=== PATIENT | female | born 1940 | race Caucasian/White ===

== ENCOUNTER 2019-04-20 15:21 | Inpatient (IN) ==
[2019-04-20] MEDS ORDERED: DUONEB (A & A) INH ONE (16:18)
[2019-04-20] MEDS ORDERED: SOLU-MEDROL IV ONE (16:18)
[2019-04-20] MEDS ORDERED: PRIMAXIN 500 MG in NS 100 ML IV ONE (16:26)
--- NOTE | 2019-04-20 16:29 | PROVIDER DOCUMENTATION ---
This chart was entered by Theresa Antonio Scribe, acting as scribe for Valdemar Hirsch MD. HPI-General Adult - General Chief Complaint: Sinus Pain Stated Complaint: SINUS Time Seen by Provider: 04/20/19 15:54 Source: patient, other ([facility]) Allergies/Adverse Reactions: Patient Allergies Allergy/AdvReac Type Severity Reaction Status Date / Time No Known Allergies Allergy Verified 04/14/16 12:59 Home Medications: Home Medication List Medication Instructions Recorded Confirmed Last Taken Type Losartan Potassium 100 mg PO DAILY 01/17/15 07/10/17 07/09/17 21:00 History Amitriptyline [Elavil] 50 mg PO HS 04/16/16 07/10/17 07/09/17 21:00 History Duloxetine [Cymbalta] 30 mg PO DAILY 04/16/16 07/10/17 07/09/17 21:00 History Gabapentin [Neurontin] 300 mg PO TID 04/16/16 07/10/17 07/09/17 21:00 History Hydrochlorothiazide 12.5 mg PO DAILY 04/16/16 07/10/17 07/09/17 21:00 History Metoprolol Succinate 100 mg PO DAILY 07/03/17 07/10/17 07/09/17 21:00 History Multivit-Min/FA/Lycopen/Lutein 1 each PO DAILY 07/03/17 07/10/17 07/09/17 21:00 History [Centrum Silver Tablet] Oxycodone/APAP 5 mg/325 mg 1 each PO Q4H PRN PRN #40 tablet 07/12/17 Unknown Rx [Percocet-5] Rivaroxaban [Xarelto] 10 mg PO Q24H #10 tablet 07/12/17 Unknown Rx - History of Present Illness -Gen Adult Nature of Presenting Problems: 79yof presents to ED cc cough, sinus congestion, thick/clear sinus drainage for 3 weeks. Pt reports she saw her PCP/Dr. Mona Cerda on because she thought she had flu, had a nose swab and the culture came back today that showed pt has Acinetobacter Baumannii and pt needs IV ABT Carbapenem. Dr. Cerda called and spoke with Maribel/[facility] ANA[facility] for hospitalist and pt is to be admitted. Location of Pain/Injury: reports: face Quality of Pain: reports: pressure Severity: reports: moderate Onset/Duration: reports: other (3 weeks) Timing: reports: still present Context/Activities at Onset: reports: light activity Modifying Factors: improves with: nothing Associated Symptoms: reports: sinus congestion/drainage Similar Symptoms Previously?: Yes Recently seen or treated by another doctor?: Yes (saw PCP last ) Review of Systems - Adult - REVIEW OF SYSTEMS - ADULT Constitutional: reports: see HPI. denies: chills, fever, fatique Eyes: reports: no symptoms reported Ears, Nose, Mouth & Throat: reports: see HPI, sinus problem Cardiovascular: reports: no symptoms reported Respiratory: reports: see HPI, cough Gastrointestinal: reports: no symptoms reported Genitourinary: reports: no symptoms reported Musculoskeletal: reports: no symptoms reported Integumentary: reports: no symptoms reported Neurological: reports: no symptoms reported Psychiatric: reports: no symptoms reported Endocrine: reports: no symptoms reported Hematologic/Lymphatic: reports: no symptoms reported Allergic/Immunologic: reports: no symptoms reported All Other Systems: Reviewed and Negative Past History - Adult - PAST MEDICAL HISTORY-ADULT Review of Records: reports: Old Records Reviewed, Nursing Assessment Review, Medications Reviewed, Social history reviewed & non-contributory. Major Childhood Illnesses: reports: denies history Cardiovascular: reports: HTN, hyperlipidemia Respiratory: reports: denies history Gastrointestinal: reports: denies history Obstetrical/Gynecological: reports: denies history Genitourinary: reports: denies history Musculoskeletal: reports: denies history Neurological: reports: denies history Endocrine/Immune: reports: denies history Other Conditions: reports: other cancer (breast) - PRIOR SURGERIES/PROCEDURES Surgical/Procedure History: reports: indwelling device (chemo port), breast (right ) - IMMUNIZATION STATUS Childhood Immunizations: See Nurse Assessment Flu Vaccine: See Nurse Assessment - FAMILY HISTORY Family History: reviewed, not pertinent Physical Exam-General - PHYSICAL EXAM-ADULT Initial Vital Signs Reviewed: Yes - CONSTITUTIONAL General Appearance: appears well, alert, no apparent distress. negative: anxious, combative - EYES Eyes: PERRL/EOMI, pink conjunctivae. negative: photophobia - HEAD, EARS, NOSE, MOUTH & THROAT HENMT: normocephalic/atraumatic, moist mucous membranes, other (sinus congestion). negative: angioedema - NECK Neck: supple - RESPIRATORY Respiratory: chest non-tender, normal breath sounds, rhonchi (coarse, bilateral) . negative: crackles - CARDIOVASCULAR Cardiovascular: normal peripheral pulses, regular rate, rhythm. negative: bradycardia, tachycardia - GASTROINTESTINAL (ABDOMEN) Abdominal Exam: normal bowel sounds, non tender, soft. negative: rebound - LYMPHATIC Lymphatic: no adenopathy - MUSCULOSKELETAL Extremity: normal inspection. negative: deformity - SKIN Integumentary: normal color. negative: diaphoresis, jaundice - PSYCHIATRIC Psych/Mental Status: normal mood/affect, oriented x 3. negative: anxious, disheveled Progress - PLAN OF CARE/RESULTS Progress/Plan/Lab Results: Vital Signs - 8 hr 04/20/19 15:25 Temperature 97.8 F Pulse Rate 106 H Respiratory Rate 24 Blood Pressure 161/81 O2 Sat by Pulse Oximetry 94 L Orders Category Date Time Status NEWS Score 2-4:Order NEWS Lactate Series NOW Care 04/20/19 15:30 Active - CONSULTS/PCP/HOSPITALIST Notification #1 *Consult/PCP/Hospitalist*: [facility] Time Discussed: 16:00 Consult Disposition: Admit Departure - Departure Date of Disposition Decision: 04/20/19 Time of Disposition Decision: 16:25 DIAGNOSIS: Infection due to acinetobacter baumannii, Sinusitis, Asthma exacerbation Disposition: ADMITTED INPATIENT 09 Certified Medical Emergency: Emergent Condition: Fair Referrals and Follow-Ups: Asmita Thomas CRNP [Primary Care Provider] - - Critical Care Note This patient required my direct & personal management of CC.: No Attestation - Physician/ ARNAUD Attestation Patient care was provided by Advanced Practice Provider:: No The physician spent face to face time with patient:: Yes Advanced Practice Provider documentation review:: Supervising physician onsite and consulted in the evaluation and care of this patient. The physician did have a face to face encounter with the patient. This chart was documented by the indicated scribe, (Theresa Antonio Scribe) and accurately reflects the services I performed and decisions made by me, Valdemar Hirsch MD, as attested by the provider's signature.
--- NOTE | 2019-04-20 16:44 | Diag Imaging Result Doc PS360 ---
EXAM: CHEST-1 VIEW HISTORY: asthma, wheezing TECHNIQUE: Single view COMPARISON: 04/02/2019 FINDINGS: The lungs are hyperexpanded. The heart is not enlarged. The vessels are not distended. There are no infiltrates. No effusion identified. There has been a right-sided mastectomy. No lung nodules identified. Likely scarring in the left base. IMPRESSION: Stable chest. Electronically signed by Keon Sood 04/20/2019 4:42 PM
[2019-04-20 17:50] LABS: BASO# 0.02 X1000 (0.0-0.2); BASO% 0.1 % (0.0-0.8); HEMATOCRIT 39.1 % (37.0-47.0); HEMOGLOBIN 13.1 g/dL (12.0-16.0); IMM GRAN# 0.03 X1000 (0.0-0.04); IMM GRAN% 0.2 % (0.0-0.5); LYMPH# 1.47 X1000 (1.2-3.4); LYMPH% 9.1 % (20.5-51.1); MCH 30.6 PG (27-31); MCHC 33.5 g/dL (33-37); MCV 91.4 FL (81-99); MONO# 0.41 X1000 (0.11-0.59); MONO% 2.5 % (1.7-9.3); MPV 8.8 FL (7.4-10.4); NEUT# 14.26 X1000 (1.4-6.5); NEUT% 88.1 % (42.2-75.2); PLT 443 X1000 (130-400); RBC 4.28 XMIL (4.2-5.4); RDW 12.8 % (11.5-14.5); WBC 16.19 X1000 (4.8-10.8)
[2019-04-20 18:06] LABS: LYMPHS 10 % (21-51); SEGS 90 % (42-75)
[2019-04-20 18:12] LABS: AGAP 19; ALB/GLOB RATIO 1.4; ALBUMIN 4.5 g/dL (3.5-5.0); ALKALINE PHOSPHATASE 78 U/L (32-104); BUN 9 mg/dL (8-22); CALCIUM 9.7 mg/dL (8.8-10.2); CHLORIDE 90 mmol/L (98-107); COSMO 267; CREATININE 0.9 mg/dL (0.5-0.9); ESTIMATED GFR > 60; GLUCOSE 165 mg/dL (70-104); GOT 30 U/L (10-30); GPT 32 U/L (10-36); POTASSIUM 3.7 mmol/L (3.5-5.1); SODIUM 132 mmol/L (136-145); TCO2 23 mmol/L (25-35); TOTAL BILIRUBIN 0.27 mg/dL (0.20-1.00); TOTAL PROTEIN 7.7 g/dL (6.3-8.3)
[2019-04-20 20:04] LABS: INR 0.97
[2019-04-20 20:05] LABS: PTT 34.7 Seconds (22.3-41.8)
--- NOTE | 2019-04-20 21:34 | HISTORY AND PHYSICAL ---
CHIEF COMPLAINT: Cough and shortness of breath, she was not getting better. HISTORY OF PRESENT ILLNESS: She is a 79-year-old female, sounds like she has got asthma. She has been dealing with this issue for the last 3 weeks with cough and congestion. She has at least had 1 round of antibiotics, possibly 2 and a round of steroids but has not improved. She had I guess a genetic screen done on her nose, a naris swab, which grew out Acinetobacter baumannii at which point her PCP, who is CYNTHIA Perez with [facility], sent her for evaluation for admission feeling this was resistant. I do not have the culture information. It sounds like it was a genetic probe test like a PCR test, so I am not quite sure what the utility is in that I am not sure what the test can give us as far as specific information. In any case, patient was admitted for treatment. In the ER, she clearly has rhonchi, some degree of hypoxia. I do not know if we have gotten a chest x-ray on her yet. Presumably we have and I think she has got hyperextend lungs, but no clear infiltrate, but she sounds rhonchorous and wheezy consistent with an asthma exacerbation, and she will be admitted as such, possibly pneumonia or bronchitis with a positive Acinetobacter genetic probe test. PAST MEDICAL HISTORY: 1. Asthma. 2. Hypertension. PAST SURGICAL HISTORY: She has had a right breast mastectomy. She had a right total knee arthroplasty in 2018. FAMILY HISTORY: Reviewed and noncontributory. SOCIAL HISTORY: No tobacco. No ethanol. 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 ALLERGIES: No known drug allergies. MEDICATIONS: Her list is being compiled. She is on Cymbalta, Elavil, hydrochlorothiazide, losartan, metoprolol, and Xarelto, which I think was for a hip. REVIEW OF SYSTEMS: Otherwise negative x10 point review of systems. PHYSICAL EXAMINATION: VITAL SIGNS: Blood pressure is 161/81, heart rate of 106, respiratory rate of 24, temperature 97.8 degrees, 94% on room air. GENERAL: A well-developed female in no acute distress. HEAD EXAM: Normocephalic, atraumatic. EYE EXAM: Pupils equally round, reactive to light. Extraocular movements were intact. EAR, NOSE AND THROAT EXAM: He had moist mucous membranes. NECK: Supple. CARDIOVASCULAR EXAM: Regular rate and rhythm. No murmurs, gallops, or rubs. PULMONARY EXAM: She distinctly had rhonchi and wheezing throughout. GASTROINTESTINAL: Soft, nontender, nondistended. Bowel sounds are positive. NEUROLOGICAL EXAM: Was grossly normal, 2 through 12 were intact. MUSCULOSKELETAL EXAM: 4/5 in all four extremities. LABORATORY DATA: White count of 16, hemoglobin and hematocrit 13 and 39, platelets 443. Sodium 132. Rest of the labs were okay. Lactate was minimally elevated, but I do not think she was septic based on exam. She has no evidence of end-organ damage, but she does have bronchitis, possibly pneumonia, although her x-ray was read as completely clear with the Acinetobacter possible infection. PROBLEM LIST: 1. Asthma exacerbation. We will continue breathing treatments, steroids. If not improved, we may get a pulmonary consult. She has started seeing Dr. Cast and antibiotics. 2. Bronchitis with possible Acinetobacter exposure. This is typically fairly resistant. We will have to use possibly a carbapenem. ID is not available at this moment so we will empirically use different medication. 3. Hypertension. We will continue regular medications and follow. DISPOSITION: Pending clinical improvement. cc: MD Asmita Ellington CRNP
[2019-04-20] MEDS ORDERED: DUONEB (A & A) INH PRN (22:40)
[2019-04-20] MEDS: DUONEB (A & A) INH SCH ×2 (22:40→23:50)
[2019-04-21] MEDS: SOLU-MEDROL IV SCH ×3 (00:23→16:09)
[2019-04-21 03:46] LABS: URINE SOURCE CLEAN CATCH
[2019-04-21 03:50] LABS: BILIRUBIN URINE NEGATIVE (NEGATIVE); BLOOD URINE NEGATIVE (NEGATIVE); COLOR YELLOW; GLUCOSE URINE 1000 mg/dL (NEGATIVE); KETONE URINE 10 mg/dL (NEGATIVE); LEUKOCYTES URINE NEGATIVE (NEGATIVE); NITRITE URINE NEGATIVE (NEGATIVE); PH URINE 6.5; PROTEIN URINE TRACE mg/dL (NEGATIVE); SP GRAVITY URINE 1.017; TURBIDITY URINE CLEAR (CLEAR); UROBILINOGEN URINE NORMAL (NORMAL)
[2019-04-21 03:52] LABS: UR EPITHELIAL CELLS <10 /HPF (<10); URINE BACTERIA NEGATIVE /HPF; URINE RBC <10 /HPF (<10); URINE WBC <10 /HPF (<10)
[2019-04-21] MEDS: MERREM 1 GM in NS 50 ML IV SCH ×3 (04:18→20:43)
[2019-04-21 06:23] LABS: BASO# 0.01 X1000 (0.0-0.2); BASO% 0.1 % (0.0-0.8); HEMATOCRIT 37.4 % (37.0-47.0); HEMOGLOBIN 12.6 g/dL (12.0-16.0); IMM GRAN# 0.02 X1000 (0.0-0.04); IMM GRAN% 0.2 % (0.0-0.5); LYMPH# 0.56 X1000 (1.2-3.4); LYMPH% 5.6 % (20.5-51.1); MCH 30.6 PG (27-31); MCHC 33.7 g/dL (33-37); MCV 90.8 FL (81-99); MONO# 0.08 X1000 (0.11-0.59); MONO% 0.8 % (1.7-9.3); MPV 8.5 FL (7.4-10.4); NEUT# 9.42 X1000 (1.4-6.5); NEUT% 93.3 % (42.2-75.2); PLT 405 X1000 (130-400); RBC 4.12 XMIL (4.2-5.4); RDW 12.7 % (11.5-14.5); WBC 10.09 X1000 (4.8-10.8)
[2019-04-21 06:52] LABS: LYMPHS 10 % (21-51); SEGS 90 % (42-75)
[2019-04-21 06:56] LABS: AGAP 16; BUN 9 mg/dL (8-22); CALCIUM 9.6 mg/dL (8.8-10.2); CHLORIDE 91 mmol/L (98-107); COSMO 270; CREATININE 0.7 mg/dL (0.5-0.9); ESTIMATED GFR > 60; GLUCOSE 324 mg/dL (70-104); POTASSIUM 3.8 mmol/L (3.5-5.1); SODIUM 129 mmol/L (136-145); TCO2 22 mmol/L (25-35)
[2019-04-21] MEDS ORDERED: APRESOLINE IV PRN (07:59)
[2019-04-21] MEDS: DUONEB (A & A) INH SCH ×5 (08:49→23:03)
[2019-04-21] MEDS ORDERED: HYDROCHLOROTHIAZIDE PO SCH (09:00)
[2019-04-21] MEDS: SYMBICORT 160/4.5 MICROGM INHALER INH SCH ×2 (09:24→19:59)
[2019-04-21] MEDS: HYDROCHLOROTHIAZIDE PO SCH (10:39)
[2019-04-21] MEDS: NEURONTIN PO SCH ×3 (10:39→20:42)
[2019-04-21] MEDS: CYMBALTA PO SCH (10:40)
[2019-04-21] MEDS: SINGULAIR PO SCH (10:40)
[2019-04-21] MEDS: CENTRUM SILVER PO SCH (10:40)
[2019-04-21] MEDS ORDERED: NS 500 ML ONE (12:53)
[2019-04-21] MEDS: COZAAR PO SCH (17:43)
--- NOTE | 2019-04-21 17:51 | PROGRESS NOTE ---
DATE: 04/21/2019 SUBJECTIVE: The patient looks well. She is breathing a bit better. She says her cough has improved. OBJECTIVE: Blood pressure is 188/68, heart rate of 106, respiratory rate of 18, temperature 98.4 degrees, 96% on room air.Cardiovascular: Regular rate and rhythm. Pulmonary: Bilateral breath sounds, clear to auscultation. She had diffuse rhonchi and wheezing, but it was improved. GI: Soft, nontender, nondistended. Bowel sounds are positive. LABORATORY DATA: White count is 10, down from 16. Hemoglobin and hematocrit 12 and 37, platelets 405,000. Sodium 129, glucose 324. Plasma lactate, though, is up a bit. ASSESSMENT AND PLAN: 1. Acute asthma exacerbation. She seems like she is improving. I am going to back down a little bit on her steroids, and we will see how she does. Reportedly in clinic she was positive on a DNA respiratory panel probe for Acinetobacter. I do not have that report yet or at all. It was faxed to the emergency room, but I do not think anything ever transpired. In any case, she is being covered by meropenem. Waiting on sputum culture here. 2. Hypertension. We will continue her regular medication. She is still not controlled, but she is only on meropenem. We will probably go ahead and start her losartan back, and we may need to adjust further. 3. Disposition pending clinical status. I anticipate discharge in 1-2 days. cc: Angelo Garcia MD
[2019-04-21] MEDS: ELAVIL PO SCH (20:43)
[2019-04-22] MEDS: SOLU-MEDROL IV SCH ×4 (00:23→19:54)
[2019-04-22] MEDS: MERREM 1 GM in NS 50 ML IV SCH ×3 (04:30→19:54)
[2019-04-22 07:45] LABS: HEMATOCRIT 36.9 % (37.0-47.0); HEMOGLOBIN 12.1 g/dL (12.0-16.0); IMM GRAN# 0.06 X1000 (0.0-0.04); IMM GRAN% 0.4 % (0.0-0.5); LYMPH# 0.84 X1000 (1.2-3.4); MCH 30.2 PG (27-31); MCHC 32.8 g/dL (33-37); MONO# 0.44 X1000 (0.11-0.59); MONO% 3.2 % (1.7-9.3); MPV 8.4 FL (7.4-10.4); NEUT# 12.55 X1000 (1.4-6.5); NEUT% 90.4 % (42.2-75.2); PLT 421 X1000 (130-400); RBC 4.01 XMIL (4.2-5.4); RDW 12.7 % (11.5-14.5); WBC 13.89 X1000 (4.8-10.8)
[2019-04-22 08:14] LABS: AGAP 16; BUN 12 mg/dL (8-22); CALCIUM 9.3 mg/dL (8.8-10.2); CHLORIDE 92 mmol/L (98-107); COSMO 270; CREATININE 0.8 mg/dL (0.5-0.9); ESTIMATED GFR > 60; GLUCOSE 210 mg/dL (70-104); POTASSIUM 4.3 mmol/L (3.5-5.1); SODIUM 132 mmol/L (136-145); TCO2 24 mmol/L (25-35)
[2019-04-22] MEDS: HYDROCHLOROTHIAZIDE PO SCH (08:29)
[2019-04-22] MEDS: COZAAR PO SCH (08:29)
[2019-04-22] MEDS: CYMBALTA PO SCH (08:29)
[2019-04-22] MEDS: SINGULAIR PO SCH (08:29)
[2019-04-22] MEDS: NEURONTIN PO SCH ×3 (08:29→19:55)
[2019-04-22] MEDS: CENTRUM SILVER PO SCH (08:29)
[2019-04-22] MEDS: DUONEB (A & A) INH SCH ×5 (08:50→23:45)
[2019-04-22] MEDS: SYMBICORT 160/4.5 MICROGM INHALER INH SCH ×2 (08:50→20:00)
[2019-04-22] MEDS ORDERED: NORVASC PO ONE (17:07)
--- NOTE | 2019-04-22 17:36 | PROGRESS NOTE ---
DATE: 04/22/2019 SUBJECTIVE: Today, she feels worse. She feels like she has audible wheezing. We did decrease her steroids yesterday, and she is not much improved. OBJECTIVE: Vital Signs: Blood pressure 178/74, heart rate 105, respiratory rate of 18, and temperature 97.8 degrees. Cardiovascular: Regular rate and rhythm. Pulmonary: Bilateral breath sounds. Clear to auscultation. GI: Soft, nontender, and nondistended. Bowel sounds are positive. LABORATORY DATA: White count is 13, hemoglobin and hematocrit 12 and 36, and platelets 421,000. Sodium 132. ASSESSMENT AND PLAN: The patient is more short of breath today. 1. Acute asthma exacerbation. I am going to continue antibiotics. We will go back up on her steroids and see how she does. We did wean them a bit yesterday, but I think she probably needs a higher degree of steroids. We will see how she does. 2. Clearly, she has pneumonia on her x-ray so I may progress to a CT of her lungs. We will also get a pulmonary opinion, and this was requested by the patient. She has seen Dr. Cast in the past, but I think she is warranted because of not improving. Supposedly, she has had Actinobacteria per culture, but I still do not have confirmation of that based on the fax records, but I am waiting on that. 3. Hypertension. It is still not controlled. I am going to probably titrate up on her losartan. She is already maxed out on that so we will probably add some Norvasc, and see how she does. Reportedly, she has had a cardiac workup, and this may be related to just her steroids. cc: Angelo Garcia MD
[2019-04-22] MEDS: ELAVIL PO SCH (19:55)
--- NOTE | 2019-04-22 23:15 | PULMONOLOGY CONSULTATION ---
DATE: 04/22/2019 REQUESTING CLINICIAN: Dr. Garcia. REASON FOR CONSULTATION: Wheezing without improvement. HISTORY OF PRESENT ILLNESS: Ms. Alonso is a 79-year-old female, never-smoker, who was recently evaluated in my office as a new patient evaluation. She was diagnosed with asthma. She presented to the office on Symbicort 1 puff p.r.n., but was not taking this medication. Correct use of Symbicort was demonstrated and she was already taking a steroid taper. She was evaluated by Dr. Cerda's office, and a nose swab revealed Acinetobacter baumannii. She was admitted to the hospital for additional treatment. PAST MEDICAL HISTORY: 1. Asthma, recently confirmed in my office and previously diagnosed by a domestic laundry worker in [place]. 2. History of breast cancer. 3. Hypertension. 4. Sinusitis. 5. Osteoarthritis. 6. Fibromyalgia. 7. Status post knee replacement. SOCIAL HISTORY: She is a never-smoker. No alcohol use. FAMILY HISTORY: Noncontributory. Her mother at an elderly age from natural causes and her father drowned at the age of 39. REVIEW OF SYSTEMS: Notable for cough, sinus drainage, wheezing and shortness of breath. PHYSICAL EXAMINATION: Physical exam reveals a well-developed, well-nourished female resting comfortably in her bed and in no distress. BP 178/74, heart rate 105, respiratory rate 18, oxygen saturation 95% on room air.HEENT: Pupils are equal and reactive. Oropharynx appears clear. Neck is supple. Chest reveals scattered wheezing and rhonchi bilaterally. Cardiac exam: S1, S2. Abdomen is soft and obese. Extremities are without edema. DIAGNOSTIC DATA: Chest x-ray reveals hyperexpansion with some mild flattening of the diaphragms, but no acute infiltrates. LABORATORY DATA: White blood count 13.89, hemoglobin 12.1, platelet count 421,000. Sodium 132, potassium 4.3, chloride 92, bicarbonate 24, BUN 12, creatinine 0.8. Microbiology is negative to date. IMPRESSION: 1. A 79-year-old with acute asthma exacerbation. 2. Dyspnea. 3. Hypertension. PLAN: 1. Continue current steroid dosing. 2. Attempt to collect a sputum for culture and sensitivity. 3. Continue bronchodilators. 4. Continue current antibiotic pending additional culture information. 5. Obtain sinus x-rays. cc: Shayan Cast MD
[2019-04-23] MEDS: ELAVIL PO SCH ×2 (05:04→21:48)
[2019-04-23] MEDS: NEURONTIN PO SCH ×4 (05:04→21:48)
[2019-04-23] MEDS: SOLU-MEDROL IV SCH ×4 (05:04→21:48)
[2019-04-23] MEDS: LOVENOX SUBQ SCH (05:05)
[2019-04-23] MEDS: MERREM 1 GM in NS 50 ML IV SCH ×3 (05:05→21:48)
[2019-04-23 07:07] LABS: BASO# 0.01 X1000 (0.0-0.2); BASO% 0.1 % (0.0-0.8); HEMATOCRIT 36.8 % (37.0-47.0); HEMOGLOBIN 12.3 g/dL (12.0-16.0); IMM GRAN# 0.07 X1000 (0.0-0.04); IMM GRAN% 0.6 % (0.0-0.5); LYMPH% 7.4 % (20.5-51.1); MCH 30.4 PG (27-31); MCHC 33.4 g/dL (33-37); MCV 91.1 FL (81-99); MONO% 4.6 % (1.7-9.3); MPV 8.4 FL (7.4-10.4); NEUT# 9.42 X1000 (1.4-6.5); NEUT% 87.3 % (42.2-75.2); PLT 431 X1000 (130-400); RBC 4.04 XMIL (4.2-5.4); RDW 12.6 % (11.5-14.5)
--- NOTE | 2019-04-23 07:36 | Diag Imaging Result Doc PS360 ---
EXAM: SINUSES 04/23/2019 HISTORY: congestion TECHNIQUE: Sinus series 3 views COMMENT: The paranasal sinuses are clear. There are no acute bony abnormalities. IMPRESSION: No evidence of acute disease. Electronically signed by Jozef Peña 04/23/2019 7:34 AM
[2019-04-23 07:42] LABS: AGAP 16; BUN 15 mg/dL (8-22); CALCIUM 9.2 mg/dL (8.8-10.2); CHLORIDE 90 mmol/L (98-107); COSMO 263; CREATININE 0.7 mg/dL (0.5-0.9); ESTIMATED GFR > 60; GLUCOSE 191 mg/dL (70-104); POTASSIUM 3.6 mmol/L (3.5-5.1); SODIUM 128 mmol/L (136-145); TCO2 22 mmol/L (25-35)
[2019-04-23 07:43] LABS: LYMPHS 6 % (21-51); MONO 12 % (1-9); SEGS 82 % (42-75)
[2019-04-23] MEDS: DUONEB (A & A) INH SCH ×4 (07:54→20:17)
[2019-04-23] MEDS: SYMBICORT 160/4.5 MICROGM INHALER INH SCH ×2 (07:56→20:19)
[2019-04-23] MEDS: HYDROCHLOROTHIAZIDE PO SCH (08:53)
[2019-04-23] MEDS: COZAAR PO SCH (08:54)
[2019-04-23] MEDS: SINGULAIR PO SCH (08:54)
[2019-04-23] MEDS: CYMBALTA PO SCH (08:54)
[2019-04-23] MEDS: CENTRUM SILVER PO SCH (08:55)
--- NOTE | 2019-04-23 09:18 | Diag Imaging Result Doc PS360 ---
EXAM: CT THORAX W/CONTRAST INDICATION: pneumonia TECHNIQUE: This exam was performed using automated exposure control, adjustment of mA or kV according to patient size, and/or use of iterative reconstruction technique. COMPARISON: None. FINDINGS: There are small biapical pleural plaques with calcification at the lung apices. There are a few tiny calcified granulomata in the left upper lobe. There are a few other miniscule noncalcified nodules bilaterally that are all less than 4 mm, statistically very likely granulomata. There is mild bronchial mucosal thickening mainly at the lung bases suggesting bronchitis. Otherwise, no discrete airspace consolidation is identified to indicate pneumonia. There is no pleural fluid collection and no pneumothorax. There are calcified hilar lymph nodes indicating prior granulomatous disease. No significant mediastinal or hilar lymphadenopathy is identified, otherwise. There is no cardiomegaly. Limited views of the upper abdomen are essentially unremarkable. There is no evidence of acute osseous abnormality. IMPRESSION: 1.Mild bronchial mucosal thickening that is mainly at the lung bases suggesting bronchitis. No discrete airspace consolidation is identified to indicate pneumonia. 2.Other incidental/nonacute findings detailed above. Electronically signed by Michael Edwards 04/23/2019 9:15 AM
[2019-04-23] MEDS ORDERED: PRILOSEC PO ONE (18:55)
--- NOTE | 2019-04-23 19:11 | PROGRESS NOTE ---
DATE: 04/23/2019 SUBJECTIVE: Patient has no major complaints. She is breathing a little bit better, but she does get winded and it felt like she was coughing a considerable amount this evening. OBJECTIVE: Blood pressure 153/69, heart rate of 102, respiratory rate of 19, temperature 98.3 degrees, 94% on room air.Cardiovascular: Regular rate and rhythm. Pulmonary: Bilateral breath sounds, clear to auscultation. GI: Soft, nontender, nondistended. Bowel sounds were weird. She still has wheezing throughout. LABORATORY DATA: White count 10, hemoglobin and hematocrit 12 and 36, platelets 431,000. Sodium is down to 128. PROBLEM LIST: 1. Acute bronchitis. All her imaging just shows bronchitis with asthma exacerbation. We will continue steroids, antibiotics. She is on Singulair, probably add some Prilosec to treat GERD. Do a home O2 evaluation. I do not really know she needs it, but we are going to look at it. 2. Hypertension will continue her medications and follow. She is still a little hypertensive. Reportedly, she has had a cardiac workup previously, but again this just looks more like bronchitis than anything else. She had an echocardiogram in October that was normal. A little bit of diastolic dysfunction. That may be part of what is going on I guess. She is on hydrochlorothiazide and amlodipine and her blood pressure is 153/69, which is an improvement. DISPOSITION: Hopefully home soon. Appreciate Dr. Cast's assistance. cc: Angelo Garcia MD
[2019-04-23] MEDS: MUCOMYST 20% INH SCH (20:17)
--- NOTE | 2019-04-23 21:35 | PULMONOLOGY PROGRESS NOTE ---
DATE: 04/23/2019 SUBJECTIVE: The patient is awake and alert. She continues to have cough, but she does feel a little better today. OBJECTIVE: Vital Signs: The patient has been afebrile for the last 24 hours. Vital signs: Blood pressure 153/69, heart rate 102, respiratory rate 19, oxygen saturation 94% on room air. HEENT: Pupils are equal and reactive. Oropharynx appears clear. Neck: Supple. Chest: Scattered rhonchi and wheezing bilaterally. Cardiac: S1 and S2. Abdomen: Soft and obese. Extremities: Trace edema. LABORATORIES: Sinus x-rays reveal no evidence of acute sinusitis. CT scan of the thorax reveals evidence of prior granulomatous disease with evidence of acute bronchitis. White blood count 10.8, hemoglobin 12.3, platelet count 431,000. IMPRESSION: A 79-year-old with: 1. Acute asthma exacerbation. 2. Acute bronchitis. 3. Dyspnea. 4. Hypertension. PLAN: 1. Continue current antibiotic regimen. 2. Continue steroids. 3. Attempt to collect sputum as outlined by Dr. Garcia. cc: Shayan Cast MD
[2019-04-23] MEDS: ROBITUSSIN-AC PO PRN (21:47)
[2019-04-23] MEDS: TESSALON PO PRN (21:48)
[2019-04-24] MEDS: MERREM 1 GM in NS 50 ML IV SCH ×3 (05:45→22:25)
[2019-04-24] MEDS: LOVENOX SUBQ SCH (05:46)
[2019-04-24] MEDS: SOLU-MEDROL IV SCH ×3 (05:46→22:26)
[2019-04-24] MEDS: PRILOSEC PO SCH (07:00)
[2019-04-24 07:30] LABS: HEMATOCRIT 35.4 % (37.0-47.0); IMM GRAN# 0.09 X1000 (0.0-0.04); IMM GRAN% 0.8 % (0.0-0.5); LYMPH# 0.83 X1000 (1.2-3.4); LYMPH% 7.4 % (20.5-51.1); MCH 30.7 PG (27-31); MCHC 33.9 g/dL (33-37); MCV 90.5 FL (81-99); MONO# 0.67 X1000 (0.11-0.59); MPV 8.4 FL (7.4-10.4); NEUT# 9.58 X1000 (1.4-6.5); NEUT% 85.8 % (42.2-75.2); PLT 396 X1000 (130-400); RBC 3.91 XMIL (4.2-5.4); RDW 12.8 % (11.5-14.5); WBC 11.17 X1000 (4.8-10.8)
[2019-04-24 07:59] LABS: AGAP 13; BUN 16 mg/dL (8-22); CALCIUM 9.1 mg/dL (8.8-10.2); CHLORIDE 93 mmol/L (98-107); COSMO 268; CREATININE 0.8 mg/dL (0.5-0.9); ESTIMATED GFR > 60; GLUCOSE 179 mg/dL (70-104); POTASSIUM 3.7 mmol/L (3.5-5.1); SODIUM 131 mmol/L (136-145); TCO2 25 mmol/L (25-35)
[2019-04-24] MEDS: DUONEB (A & A) INH SCH ×6 (08:46→23:40)
[2019-04-24] MEDS: MUCOMYST 20% INH SCH (08:46)
[2019-04-24] MEDS: SYMBICORT 160/4.5 MICROGM INHALER INH SCH ×2 (08:53→20:07)
[2019-04-24] MEDS: CENTRUM SILVER PO SCH (09:21)
[2019-04-24] MEDS: CYMBALTA PO SCH (09:22)
[2019-04-24] MEDS: HYDROCHLOROTHIAZIDE PO SCH (09:22)
[2019-04-24] MEDS: NEURONTIN PO SCH ×2 (09:22→15:38)
[2019-04-24] MEDS: SINGULAIR PO SCH (09:22)
[2019-04-24] MEDS: COZAAR PO SCH (09:22)
[2019-04-24 17:04] LABS: UR CREAT RANDOM 60.5 mg/dL (11-20)
--- NOTE | 2019-04-24 18:48 | PULMONOLOGY PROGRESS NOTE ---
DATE: 04/24/2019 SUBJECTIVE: Ms. Alonso is sitting up at the bedside in the chair. She states she is feeling much better today. She does have a cough although she states it is improved. VITAL SIGNS: Blood pressure is 137/68 with a heart rate of 89, respirations are 18, temperature is 97.6 degrees oral with room air saturations 96 to 98%. PHYSICAL EXAMINATION: Eyes: Pupils are equal, round, react to light. EOMs are intact. Sclerae anicteric. HEENT: Head is normocephalic, atraumatic. Mucous membranes are moist. Neck: Supple with trachea midline. Cardiovascular: Regular rate and rhythm. S1 and S2 appreciated. Calves are nontender bilateral. She has bilateral pretibial edema with peripheral pulses palpable x4 extremities. Pulmonary: Breath sounds with scattered rhonchi and expiratory wheezing throughout. Chest rises and falls symmetric to respiration. Chest wall is nontender to palpation. Gastrointestinal: Abdomen is soft, nontender, nondistended with bowel sounds in all 4 quadrants. Neurologic: She is alert and oriented x3. Skin: Warm and dry. LABS: WBC is 11.1 with hemoglobin 12, hematocrit 35.4, and platelets of 396,000. Sodium 131, potassium 3.7, BUN 16, creatinine 0.8, glucose of 179. Blood cultures revealed no growth. ASSESSMENT: This is a 79-year-old female with: 1. Acute asthma exacerbation. 2. Acute bronchitis. 3. Dyspnea. 4. Hypertension. PLAN: 1. We will continue with her current antibiotic regimen. 2. Continue steroids as well as bronchodilators. 3. Continue to attempt to obtain a sputum specimen. I did discuss this with the patient. She states that she is unable to produce sputum at this time. Dictated by CYNTHIA Watson for Shayan Cast MD cc: CYNTHIA Watson MD
[2019-04-24] MEDS ORDERED: NORVASC PO ONE (18:49)
--- NOTE | 2019-04-24 19:58 | PROGRESS NOTE ---
DATE: 04/24/2019 SUBJECTIVE: The patient has no major complaints. OBJECTIVE: Vital Signs: Blood pressure 196/80, heart rate of 94, respiratory rate 18, temperature 97.7. Cardiovascular: Regular rate and rhythm. Pulmonary: Bilateral breath sounds, clear to auscultation. Her pulmonary exam is improved after coughing and doing a prolonged end expiration. I did not appreciate wheezing, and she had good air movement throughout. GI: Soft, nontender, nondistended. Bowel sounds are positive. LABORATORY DATA: White count 11, hemoglobin and hematocrit 12 and 35, platelets 396. Sodium is up to 191. ASSESSMENT/PLAN: 1. Acute asthma with a bronchitis. She feels better today. She feels like the Mucomyst helped with her expectoration. She just seems better. I cannot tell that she has an O2 requirement. I am trying to figure that out. I am going to wean her steroids today, and if she looks good tomorrow, will probably let her go home tomorrow if Pulmonary is okay with that. 2. Hypertension is still not controlled at all. I am going to add some amlodipine. It may be just because of the steroids, but we may need to add some different treatment and see how she does. 3. Disposition: Hopefully, if things are stable, we can discharge her tomorrow. cc: Angelo Garcia MD
[2019-04-24] MEDS: ELAVIL PO SCH (22:26)
[2019-04-25] MEDS: PRILOSEC PO SCH (06:35)
[2019-04-25] MEDS: LOVENOX SUBQ SCH (06:35)
[2019-04-25] MEDS: SOLU-MEDROL IV SCH ×2 (06:35→16:35)
[2019-04-25] MEDS: MUCOMYST 20% INH SCH ×2 (07:40→19:38)
[2019-04-25] MEDS: SYMBICORT 160/4.5 MICROGM INHALER INH SCH ×2 (07:40→19:38)
[2019-04-25] MEDS: DUONEB (A & A) INH SCH ×4 (07:48→19:38)
[2019-04-25 08:15] LABS: ESTIMATED GFR > 60
[2019-04-25 08:42] LABS: AGAP 13; BUN 20 mg/dL (8-22); CALCIUM 8.8 mg/dL (8.8-10.2); CHLORIDE 88 mmol/L (98-107); COSMO 261; CREATININE 0.8 mg/dL (0.5-0.9); GLUCOSE 186 mg/dL (70-104); POTASSIUM 3.9 mmol/L (3.5-5.1); SODIUM 126 mmol/L (136-145); TCO2 25 mmol/L (25-35)
[2019-04-25 08:58] LABS: BASO# 0.01 X1000 (0.0-0.2); BASO% 0.1 % (0.0-0.8); HEMATOCRIT 35.6 % (37.0-47.0); HEMOGLOBIN 11.9 g/dL (12.0-16.0); IMM GRAN# 0.18 X1000 (0.0-0.04); IMM GRAN% 1.4 % (0.0-0.5); LYMPH# 0.89 X1000 (1.2-3.4); LYMPH% 7.2 % (20.5-51.1); MCH 30.3 PG (27-31); MCHC 33.4 g/dL (33-37); MCV 90.6 FL (81-99); MONO# 0.77 X1000 (0.11-0.59); MONO% 6.2 % (1.7-9.3); MPV 8.6 FL (7.4-10.4); NEUT# 10.58 X1000 (1.4-6.5); NEUT% 85.1 % (42.2-75.2); PLT 414 X1000 (130-400); RBC 3.93 XMIL (4.2-5.4); RDW 12.5 % (11.5-14.5); WBC 12.43 X1000 (4.8-10.8)
[2019-04-25] MEDS: CENTRUM SILVER PO SCH (10:56)
[2019-04-25] MEDS: NORVASC PO SCH (10:57)
[2019-04-25] MEDS: SINGULAIR PO SCH (10:57)
[2019-04-25] MEDS: COZAAR PO SCH (10:57)
[2019-04-25] MEDS: CYMBALTA PO SCH (10:57)
[2019-04-25] MEDS: NEURONTIN PO SCH ×3 (10:57→22:56)
[2019-04-25] MEDS: HYDROCHLOROTHIAZIDE PO SCH (10:58)
[2019-04-25] MEDS: TESSALON PO PRN (11:00)
[2019-04-25] MEDS: ROBITUSSIN-AC PO PRN (11:00)
[2019-04-25 11:38] LABS: BANDS 8 % (0-1); LYMPHS 10 % (21-51); MONO 8 % (1-9); SEGS 74 % (42-75)
[2019-04-25] MEDS: MYCOSTATIN SUSP PO SCH ×2 (16:35→22:56)
[2019-04-25] MEDS: MERREM 1 GM in NS 50 ML IV SCH ×3 (16:37→22:55)
--- NOTE | 2019-04-25 17:34 | PROGRESS NOTE ---
DATE: 04/25/2019 SUBJECTIVE: The patient has no major complaints. OBJECTIVE: Vital Signs: Blood pressure is 181/82, heart rate of 98, respiratory rate of 17, temperature 97.8, 95% on room air. Cardiovascular: Regular rate and rhythm. Pulmonary: Bilateral breath sounds, clear to auscultation. GI: Soft, nontender, nondistended. Bowel sounds are positive. LABORATORY DATA: Her white count is 12,hemoglobin and hematocrit 11 and 35, platelets 414. Sodium is down to 126. PROBLEM LIST: 1. Acute asthma with bronchitis. Overall, she is improving. I do not really hear much wheezing today. I did try to push for discharge, but her daughter and her seem to feel like she needs 1 more day. I will wean her steroids a little further. Pulmonary is following. Appreciate their input. 2. Hypertension, still not controlled. She had been recently taken off metoprolol, which makes sense because it may be inducing bronchospasms. 3. Hyponatremia. This is apparently chronic. She is on hydrochlorothiazide, which we just need to stop that. It does not make any sense to me, but she is on hydrochlorothiazide. That is probably what is causing her hyponatremia. Her urine electrolytes are certainly not consistent with syndrome of inappropriate diuretic hormone. DISPOSITION: If she is stable tomorrow, she is going home. We will check on her in the morning. cc: Angelo Garcia MD
--- NOTE | 2019-04-25 17:51 | PULMONOLOGY PROGRESS NOTE ---
DATE: 04/25/2019 SUBJECTIVE: Ms. Alonso is sitting up at the bedside in the chair. She states she feels better. She states her cough is improved. OBJECTIVE: Vital signs: Blood pressure is 170/68, respirations are 20, temperature is 98 degrees with O2 saturations 95% to 97% on room air. Eyes: Pupils are equal, round and reactive to light. EOMs are intact. Sclerae anicteric. HEENT is normocephalic, atraumatic. Mucous membranes are moist. Neck is supple, with trachea midline. Cardiovascular: Regular rate and rhythm. S1 and S2 appreciated. Calves are nontender bilateral. Pulmonary: Expiratory wheezes are heard throughout. She does have scattered rhonchi that clear to cough. This has improved from yesterday. Chest rises and falls symmetric with respiration. Gastrointestinal: Abdomen is soft, nontender, nondistended, with bowel sounds in all 4 quadrants. Neurologic: She is alert and oriented x3. Skin is warm and dry. LABORATORY DATA: WBC is 12.4 with hemoglobin 11.9, hematocrit 35.6, platelets of 414,000. Sodium 126, potassium 3.9, BUN 20, creatinine 0.8 with glucose of 186. IMPRESSION: This is a 79-year-old female with: 1. Acute asthma exacerbation. 2. Acute bronchitis. 3. Dyspnea. 4. Hypertension. PLAN: 1. We will continue her current antibiotic regimen. 2. Continue steroids as well as bronchodilators. 3. Continue to obtain sputum specimen. Dictated by CYNTHIA Watson for Shayan Cast MD cc: CYNTHIA Watson MD
[2019-04-25] MEDS: CARDIZEM CD PO SCH (18:14)
[2019-04-25] MEDS: ELAVIL PO SCH (22:56)
[2019-04-26] MEDS: NEURONTIN PO SCH ×2 (01:12→08:31)
[2019-04-26] MEDS: DUONEB (A & A) INH SCH ×3 (03:30→11:49)
[2019-04-26] MEDS ORDERED: SOLU-MEDROL IV SCH (05:00)
[2019-04-26] MEDS: MERREM 1 GM in NS 50 ML IV SCH (05:44)
[2019-04-26] MEDS: PRILOSEC PO SCH (05:44)
[2019-04-26] MEDS: LOVENOX SUBQ SCH (05:45)
[2019-04-26] MEDS: MUCOMYST 20% INH SCH (08:00)
[2019-04-26] MEDS: SYMBICORT 160/4.5 MICROGM INHALER INH SCH (08:00)
[2019-04-26] MEDS: COZAAR PO SCH (08:31)
[2019-04-26] MEDS: CYMBALTA PO SCH (08:31)
[2019-04-26] MEDS: MYCOSTATIN SUSP PO SCH (08:31)
[2019-04-26] MEDS: CENTRUM SILVER PO SCH (08:31)
[2019-04-26] MEDS: CARDIZEM CD PO SCH (08:31)
[2019-04-26] MEDS: NORVASC PO SCH (08:31)
[2019-04-26] MEDS: SINGULAIR PO SCH (08:31)
[2019-04-26] MEDS ORDERED: DIFLUCAN PO ONE (13:57)
--- NOTE | 2019-04-26 14:06 | PULMONOLOGY PROGRESS NOTE ---
DATE: 04/26/2019 SUBJECTIVE: Ms. Alonso is sitting up in the bedside chair, eating breakfast. She has no complaints. OBJECTIVE: Vital Signs: Blood pressure is 166/71, with a heart rate of 77, respirations 18, temperature 97.7 degrees oral, with room air saturations of 97% to 99%. HEENT: Head is normocephalic, atraumatic. Mucous membranes are moist. Pupils are equal, round, react to light. EOMs are intact. Sclerae anicteric. Neck: Supple with trachea midline. Cardiovascular: Regular rate and rhythm. S1 and S2 appreciated. Calves are nontender bilaterally. Pulmonary: Expiratory wheezes are heard scattered throughout, with some scattered rhonchi that mostly clears to cough. This has improved. Chest rises and falls symmetric with respiration. There is no increased work of breathing noted. Gastrointestinal: Abdomen is soft, nontender, nondistended with bowel sounds in all 4 quadrants. Neurologic: She is alert and oriented. Skin: Warm and dry. LABORATORY DATA: WBC 12.4, with hemoglobin 11.9, hematocrit 35.6, platelets of 414,000. Sodium 126, potassium 3.9, BUN 20, creatinine 0.8, with a glucose of 186. ASSESSMENT: This is a 79-year-old female with: 1. Acute asthma exacerbation. 2. Acute bronchitis. 3. Dyspnea. 4. Hypertension. PLAN: 1. Will continue her current antibiotic regimen. 2. Continue steroids and bronchodilators. 3. From a pulmonary standpoint, Ms. Alonso is ready for discharge. Dictated by CYNTHIA Watson for Shayan Cast MD cc: CYNTHIA Watson MD
[2019-04-26 14:56] VITALS: BP 166/95
--- NOTE | 2019-04-26 18:18 | DISCHARGE SUMMARY ---
ADMISSION DATE: 04/20/2019 DISCHARGE DATE: 04/26/2019 DISCHARGE DIAGNOSES: 1. Acute asthma exacerbation with bronchitis. 2. Hypertension, uncontrolled. CONSULTATIONS: Dr. Cast, pulmonary. PROCEDURES: None. This is a 79-year-old who was admitted for cough, congestion for the last 3 weeks. She had 1 round of antibiotics, a round of steroids. Apparently, she had a naris swab that possibly grew out Acinetobacter. I did not get records from that. We put her on a carbapenem empirically because of that information. Dr. Cast was consulted who has seen her in the past, and we continued her antibiotics. She had sinus x-rays which were clear. Her chest CT did not show pneumonia, bronchial mucosal thickening suggesting bronchitis. She did have an wheezing throughout. We initially weaned steroids, and then we had to go back up on the steroids when she had increased bronchospasm, but by the , her bronchospasm was improving. We did get a sputum culture, but at this point, nothing has grown out, as well as a blood culture. She was felt stable for discharge on the . DISCHARGE MEDICATIONS: 1. Multivitamin. 2. Cozaar 100 daily. 3. Cymbalta 30 daily. 4. Elavil 50 at bedtime. 5. Neurontin 300 t.i.d. 6. ProAir as needed. 7. Singulair 10 daily. 8. Symbicort 2 puffs b.i.d. 9. Cardizem CD 120 daily to replace her metoprolol and help with blood pressure. 10. DuoNeb q.6. 11. Nystatin 100,000 units q.6 for 10 days. 12. Cefdinir 300 b.i.d. for 7 days. 13. Prednisone taper. FOLLOW-UP: With Asmita Thomas, with Lilian Cerda 1 to 2 weeks, Dr. Cast 2 to 4 weeks. Return for worsening shortness of breath or cough. She did not have symptomatic oral candidiasis on exam. 32 minute discharge. cc: Angelo Garcia MD
== END 2019-04-26 15:02 | disposition home or self-care (01) | DRG 202 ==
LOC: ED 15:21 → EDIPHOLD 22:36 → 4N 04-21 07:33
PROVIDERS: ATTEND Internal Medicine